=== PATIENT | female | born 1960 | race Caucasian/White ===

== ENCOUNTER → 2017-02-03 | Outpatient (REF) | payer BC ==
[~2017-02-03] MED LIST: AMOX; ATOR1TAB19; BENZ100C5; CARD180C4 PO; CITA20TA4; DIAZ5TAB PO; DYMI137S; FLUC150T; SUCR1TAB56; XARE20TA
== END ==
LOC: M LAB REF 10:03
PROVIDERS: ATTEND Physician Assistant
DX: J02.9 Acute pharyngitis, unspecified (principal)

== ENCOUNTER 2017-02-16 18:03 | Emergency (ER) | payer BC ==
[~2017-02-16] VITALS: Ht 162.6 cm; Wt 74.1 kg
[2017-02-16] MEDS ORDERED: CITA20TA4 (18:18)
[2017-02-16] MEDS ORDERED: DYMI137S (18:18)
[2017-02-16] MEDS ORDERED: SUCR1TAB56 (18:18)
[2017-02-16] MEDS ORDERED: ATOR1TAB19 (18:18)
[2017-02-16] MEDS ORDERED: BENZ100C5 (18:18)
[2017-02-16] MEDS ORDERED: FLUC150T (18:18)
[2017-02-16] MEDS ORDERED: AMOX (18:18)
[2017-02-16] MEDS ORDERED: XARE20TA (18:18)
[2017-02-16] MEDS ORDERED: DIAZ5TAB PO (18:18)
--- NOTE | 2017-02-16 18:50 | REP ---
Chest one-view HISTORY: Chest pain Comparison: 12/01/2016 The lungs are clear. The heart is normal in size. The pulmonary vasculature is normal in appearance. Impression: No acute disease. Signed by Andreas Lopez MD 02/16/2017 06:41 P
[2017-02-16 19:22] LABS: BASO # 0.1 10^3/uL (0.0-0.2); BASO % 0.9 % (0.0-1.0); EOS # 0.4 10^3/uL (0.0-0.50); EOS % 4.1 % (0.0-3.0); IMMATURE GRANULOCYTE % 0.2 % (0-0); LYMPH # 2.7 10^3/uL (1.5-4.5); MEAN CORPUSCULAR HGB CONC 33.7 g/dl (32.0-36.5); MEAN CORPUSCULAR VOLUME 86.2 fl (80.0-96.0); MONO # 0.4 10^3/uL (0.0-0.8); NEUTROPHILS # 5.8 10^3/uL (1.8-7.7); NEUTROPHILS % 61.8 % (36.0-66.0); PLATELET COUNT, AUTOMATED 345 10^3/uL (150-450); RED CELL DISTRIBUTION WIDTH 13.2 % (11.5-14.5); WHITE BLOOD COUNT 9.3 10^3/uL (4.0-10.0)
[2017-02-16] MEDS ORDERED: diltiaZEM **CD** 180 MG CAP PO ONE (20:15)
[2017-02-16 20:57] VITALS: BP 174/92
[2017-02-16 23:19] LABS: ALBUMIN 3.2 GM/DL (3.2-5.2); ALBUMIN/GLOBULIN RATIO 0.91 (1.00-1.93); ALKALINE PHOSPHATASE 64 U/L (45-117); ALT/SGPT 31 U/L (12-78); ANION GAP 6 MEQ/L (8-16); AST/SGOT 17 U/L (15-37); BILIRUBIN,DIRECT < 0.1 MG/DL (0.0-0.2); BILIRUBIN,TOTAL 0.2 MG/DL (0.2-1.0); BLOOD UREA NITROGEN 15 MG/DL (7-18); CALCIUM LEVEL 8.7 MG/DL (8.5-10.1); CARBON DIOXIDE LEVEL 28 MEQ/L (21-32); CHLORIDE LEVEL 108 MEQ/L (98-107); FREE T4 1.16 NG/DL (0.76-1.46); GLOMERULAR FILTRATION RATE > 60.0 (>51); GLUCOSE, FASTING 96 MG/DL (70-105); POTASSIUM SERUM 3.8 MEQ/L (3.5-5.1); SODIUM LEVEL 142 MEQ/L (136-145); TOTAL PROTEIN 6.7 GM/DL (6.4-8.2)
[2017-02-16] MEDS ORDERED: ISOVUE-370 76% 100ML VIAL (Q9967) As Ordered ONE (23:42)
--- NOTE | 2017-02-17 00:40 | REPUSA ---
CLINICAL HISTORY: Tachypnea, elevated d-dimers, exclude PE. TECHNIQUE: Multiple incremental axial, coronal and oblique images are obtained from the thoracic inle t to the upper abdomen. Intravenous contrast material was administered as per pulmonary embolism prot ocol. COMMENTS: Bilateral basilar atelectatic pulmonary changes. There is excellent opacification of pulmonary arterial system without evidence for pulmonary embolism . Aorta is of normal caliber without evidence for dissection or aneurysm. There is no evidence of pleural or parenchymal mass. There are no pleural effusions. There is no evid ence of hilar or mediastinal lymphadenopathy. The heart and great vessels are within normal limits. Images of the upper abdomen demonstrate no evidence of adrenal mass. The bony structures are free of lytic or blastic lesions. Multilevel degenerative changes are seen in volving the visualized thoracolumbar spine. Scattered calcifications are seen involving the aorta and major branches compatible with atherosclero sis. 1.1 cm well-defined hypodense lesion of the right hepatic lobe suggestive of a cyst. IMPRESSION: No evidence for pulmonary embolism. Bilateral basilar atelectatic pulmonary changes. Thank you for your kind referral of this patient.
[2017-02-17] MEDS ORDERED: CARD180C4 PO (03:38)
[2017-02-17 03:42] VITALS: BP 100/58
--- NOTE | 2017-02-17 08:30 | ECGEPIP ---
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
--- NOTE | 2017-02-17 08:33 | ECGEPIP ---
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
--- NOTE | 2017-02-17 08:34 | ECGEPIP ---
Stationary ECG Study [facility] - ED Test Date: 2017-02-17 Pat Name: PABLITO TAY Department: Room: - Gender: F Lgsw: : 1960 Requested By: KIMBERLY Manuel Order Number: [id number] Reading MD: Des Waite Measurements Intervals [place] Rate: 68 P: 51 DE: 172 QRS: 40 QRSD: 88 T: 33 QT: 406 QTc: 433 Interpretive Statements SINUS RHYTHM Electronically Signed On 02-17-2017 8:34:28 EDT by Des Waite
== END 2017-02-17 03:54 | disposition home or self-care (01) ==
LOC: M ED 18:03
DX: R07.9 Chest pain, unspecified (principal); I48.91 Unspecified atrial fibrillation; Z79.899 Other long term (current) drug therapy; Z88.1 Allergy status to other antibiotic agents; Z88.2 Allergy status to sulfonamides; Z98.890 Other specified postprocedural states
CPT/HCPCS: 71010; 71275; 80048; 80076; 82550; 82553; 83690; 84439; 84443; 85025; 85379; 93005; 93041; 94760; 96374; 99285; Q9967

== ENCOUNTER 2017-03-05 18:32 | Emergency (ER) | payer BC ==
[~2017-03-05] VITALS: Ht 162.6 cm; Wt 74.8 kg
--- NOTE | 2017-03-05 20:50 | REPUSA ---
Clinical history: Cough. Comparison: None. Findings: Frontal and lateral views of the chest were obtained. The mediastinum and cardiac silhouett e are within normal limits. The lungs are clear. No pleural effusion or pneumothorax is seen. The oss eous structures and soft tissues are unremarkable. Impression: No acute disease.
[2017-03-05 21:08] LABS: BASO % 0.2 % (0.0-1.0); EOS # 0.2 10^3/uL (0.0-0.50); EOS % 2.1 % (0.0-3.0); IMMATURE GRANULOCYTE % 0.1 % (0-0); LYMPH # 2.8 10^3/uL (1.5-4.5); LYMPH % 34.7 % (24.0-44.0); MEAN CORPUSCULAR HEMOGLOBIN 29.4 pg (27.0-33.0); MEAN CORPUSCULAR HGB CONC 33.6 g/dl (32.0-36.5); MEAN CORPUSCULAR VOLUME 87.3 fl (80.0-96.0); MONO # 0.5 10^3/uL (0.0-0.8); MONO % 6.2 % (0.0-5.0); NEUTROPHILS # 4.6 10^3/uL (1.8-7.7); NEUTROPHILS % 56.7 % (36.0-66.0); PLATELET COUNT, AUTOMATED 290 10^3/uL (150-450); RED CELL DISTRIBUTION WIDTH 13.8 % (11.5-14.5); WHITE BLOOD COUNT 8.1 10^3/uL (4.0-10.0)
[2017-03-05 21:34] LABS: ANION GAP 9 MEQ/L (8-16); BLOOD UREA NITROGEN 12 MG/DL (7-18); CALCIUM LEVEL 8.7 MG/DL (8.5-10.1); CARBON DIOXIDE LEVEL 27 MEQ/L (21-32); CHLORIDE LEVEL 106 MEQ/L (98-107); CREATININE FOR GFR 0.81 MG/DL (0.55-1.02); FREE T4 1.21 NG/DL (0.76-1.46); GLOMERULAR FILTRATION RATE > 60.0 (>51); GLUCOSE, FASTING 97 MG/DL (70-105); MAGNESIUM LEVEL 2.1 MG/DL (1.8-2.4); PHOSPHORUS LEVEL 3.4 MG/DL (2.5-4.9); POTASSIUM SERUM 3.8 MEQ/L (3.5-5.1); SODIUM LEVEL 142 MEQ/L (136-145)
[2017-03-06 01:38] VITALS: BP 120/66
--- NOTE | 2017-03-06 05:41 | ECGEPIP ---
Stationary ECG Study [facility] - ED Test Date: 2017-03-05 Pat Name: PABLITO TAY Department: Room: - Gender: F Manager Oracle: TINY : 1960 Requested By: Des Black Order Number: [id number] Reading MD: Des Waite Measurements Intervals [place] Rate: 74 P: 55 [place]: 154 QRS: 20 QRSD: 82 T: 24 QT: 375 QTc: 417 Interpretive Statements SINUS RHYTHM LOW QRS VOLTAGE IN PRECORDIAL LEADS SIMILAR TO 02/17/17 Electronically Signed On 03-06-2017 5:41:21 EDT by Des Waite
--- NOTE | 2017-03-06 05:47 | ECGEPIP ---
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
== END 2017-03-06 01:55 | disposition home or self-care (01) ==
LOC: M ED 18:32
DX: R00.2 Palpitations (principal); I48.91 Unspecified atrial fibrillation; E78.4 Other hyperlipidemia; Z87.891 Personal history of nicotine dependence

== ENCOUNTER → 2017-04-23 | Outpatient (CLI) | payer BC ==
--- NOTE | 2017-04-27 14:54 | SLEEPHOME ---
DATE OF STUDY: 04/23/2017 ORDERED BY: Luanne Hurst NP Diagnostic home sleep testing was performed due to concern for the obstructive sleep apnea syndrome in this patient with a history of excessive somnolence. Comorbidities of atrial fibrillation. For testing, a NOX-T3 respiratory monitoring device was used. Continuous record was made of pulse, oxygen saturation, airflow, chest and abdominal strain, and body position. 10 hours and 59 minutes of data were reviewed. There were 8 hours and 28 minutes marked as time in bed. During the interval marked time in bed, there were 123 respiratory events identified of 10 seconds in duration or greater for a respiratory event index of 14.5. The events were primarily obstructive with mixed and central apneas were also seen. The frequency of mixed and central apneas was greater than 50%. Baseline pulse rate 62 beats per minute. Pulse rate ranged 52-90 beats per minute. Baseline saturation 93%. Lowest oxygen saturation 84%. Testing was performed in both the supine and non supine positions. IMPRESSION: Abnormal home sleep testing with repetitive respiratory events and oxygen desaturation to 84% with a respiratory event index of 14.5 and frequent central apneas consistent with complex obstructive sleep apnea syndrome. RECOMMENDATION: Given the complexity of the patient's disease, referral for formal sleep evaluation and in laboratory pressure titration is indicated.
== END ==
LOC: M SLEEP HO 13:29
PROVIDERS: ATTEND Nurse Practitioner Adult Health
DX: G47.30 Sleep apnea, unspecified (principal); R40.0 Somnolence

== ENCOUNTER → 2017-06-01 | Outpatient (CLI) | payer BC | LOC: M SLEEP 19:42 | DX: G47.33 Obstructive sleep apnea (adult) (pediatric) (principal) | CPT/HCPCS: 95811 ==

== ENCOUNTER → 2017-06-21 | Outpatient (REF) | payer BC ==
[2017-06-21 15:18] LABS: BASO % 0.5 % (0.0-1.0); EOS # 0.1 10^3/uL (0.0-0.50); EOS % 2.1 % (0.0-3.0); HEMATOCRIT 39.2 % (36.0-47.0); HEMOGLOBIN 12.9 g/dl (12.0-16.0); IMMATURE GRANULOCYTE % 0.2 % (0-0); LYMPH # 2.1 10^3/uL (1.5-4.5); LYMPH % 36.8 % (24.0-44.0); MEAN CORPUSCULAR HEMOGLOBIN 28.4 pg (27.0-33.0); MEAN CORPUSCULAR HGB CONC 32.9 g/dl (32.0-36.5); MEAN CORPUSCULAR VOLUME 86.3 fl (80.0-96.0); MONO # 0.3 10^3/uL (0.0-0.8); MONO % 4.4 % (0.0-5.0); NEUTROPHILS # 3.2 10^3/uL (1.8-7.7); PLATELET COUNT, AUTOMATED 295 10^3/uL (150-450); RED BLOOD COUNT 4.54 10^6/uL (4.00-5.40); RETIC HEMOGLOBIN EQUIVALENT 34.7 pg (24-36); RETICULOCYTE # 48.6 10^9/L (17-77); RETICULOCYTE % 1.1 % (0.5-1.5); WHITE BLOOD COUNT 5.7 10^3/uL (4.0-10.0)
[2017-06-21 15:33] LABS: TOTAL 25(OH) VITAMIN D 22.7 NG/ML (30.0-100.0)
[2017-06-21 15:34] LABS: FOLATE 19.3 NG/ML; VITAMIN B12 LEVEL 427 PG/ML
[2017-06-21 16:22] LABS: ALBUMIN 3.9 GM/DL (3.2-5.2); ALKALINE PHOSPHATASE 61 U/L (45-117); ALT/SGPT 23 U/L (12-78); ANION GAP 6 MEQ/L (8-16); AST/SGOT 12 U/L (7-37); BILIRUBIN,TOTAL 0.4 MG/DL (0.2-1.0); BLOOD UREA NITROGEN 16 MG/DL (7-18); CALCIUM LEVEL 8.8 MG/DL (8.5-10.1); CARBON DIOXIDE LEVEL 28 MEQ/L (21-32); CHLORIDE LEVEL 105 MEQ/L (98-107); CHOLESTEROL LEVEL 229 MG/DL (<200); CHOLESTEROL RISK RATIO 3.948 (<5); CREATININE FOR GFR 0.79 MG/DL (0.55-1.30); FERRITIN 84 NG/ML (8-252); GLOMERULAR FILTRATION RATE > 60.0 (>51); GLUCOSE, FASTING 97 MG/DL (70-100); HDL CHOLESTEROL 58 MG/DL (>40); IRON (FE) 105 UG/DL (50-170); LDL CHOLESTEROL 150.2 MG/DL (<100); NON-HDL-C 171 MG/DL; PERCENT SATURATION 35.4 % (13.2-45.0); POTASSIUM SERUM 4.7 MEQ/L (3.5-5.1); SODIUM LEVEL 139 MEQ/L (136-145); TOTAL IRON BINDING CAPACITY 297 UG/DL (250-450); TOTAL PROTEIN 6.9 GM/DL (6.4-8.2); TRIGLYCERIDES LEVEL 104 MG/DL (<150)
[2017-06-21 16:34] LABS: ERYTHROCYTE SEDIMENTATION RATE 10 mm/hr (0-30)
[2017-06-23 14:15] LABS: ANTINUCLEAR ANTIBODIES DIRECT Negative (Negative)
== END ==
LOC: M LABDRWAD 13:48
DX: E55.9 Vitamin D deficiency, unspecified (principal); E78.5 Hyperlipidemia, unspecified; G43.109 Migraine with aura, not intractable, without status migrainosus; R07.9 Chest pain, unspecified; M43.6 Torticollis
CPT/HCPCS: 82746

== ENCOUNTER → 2018-02-04 | Outpatient (CLI) | payer BC ==
[2018-02-04 09:22] LABS: BASO % 0.7 % (0.0-1.0); EOS # 0.2 10^3/uL (0.0-0.50); EOS % 2.6 % (0.0-3.0); HEMATOCRIT 38.9 % (36.0-47.0); IMMATURE GRANULOCYTE % 0.2 % (0-3.0); LYMPH # 1.8 10^3/uL (1.5-4.5); LYMPH % 31.4 % (24.0-44.0); MEAN CORPUSCULAR HEMOGLOBIN 29.4 pg (27.0-33.0); MEAN CORPUSCULAR HGB CONC 33.4 g/dl (32.0-36.5); MONO # 0.4 10^3/uL (0.0-0.8); MONO % 6.5 % (0.0-5.0); NEUTROPHILS # 3.4 10^3/uL (1.8-7.7); NEUTROPHILS % 58.6 % (36.0-66.0); PLATELET COUNT, AUTOMATED 261 10^3/uL (150-450); RED BLOOD COUNT 4.42 10^6/uL (4.00-5.40); RED CELL DISTRIBUTION WIDTH 13.4 % (11.5-14.5); WHITE BLOOD COUNT 5.9 10^3/uL (4.0-10.0)
[2018-02-04 09:48] LABS: ANION GAP 9 MEQ/L (8-16); BLOOD UREA NITROGEN 16 MG/DL (7-18); CALCIUM LEVEL 8.8 MG/DL (8.5-10.1); CARBON DIOXIDE LEVEL 27 MEQ/L (21-32); CHLORIDE LEVEL 106 MEQ/L (98-107); CREATININE FOR GFR 0.75 MG/DL (0.55-1.30); GLOMERULAR FILTRATION RATE > 60.0 (>51); GLUCOSE, FASTING 92 MG/DL (70-100); POTASSIUM SERUM 4.2 MEQ/L (3.5-5.1); SODIUM LEVEL 142 MEQ/L (136-145)
== END ==
LOC: M LAB 08:38
DX: I48.0 Paroxysmal atrial fibrillation (principal)
CPT/HCPCS: 80048

== ENCOUNTER → 2018-02-04 | Outpatient (CLI) | payer BC ==
[2018-02-04 09:23] LABS: BASO % 0.7 % (0.0-1.0); EOS # 0.1 10^3/uL (0.0-0.50); EOS % 2.2 % (0.0-3.0); HEMATOCRIT 40.1 % (36.0-47.0); HEMOGLOBIN 13.2 g/dl (12.0-15.5); IMMATURE GRANULOCYTE % 0.3 % (0-3.0); LYMPH # 1.9 10^3/uL (1.5-4.5); LYMPH % 32.3 % (24.0-44.0); MEAN CORPUSCULAR HEMOGLOBIN 28.9 pg (27.0-33.0); MEAN CORPUSCULAR HGB CONC 32.9 g/dl (32.0-36.5); MEAN CORPUSCULAR VOLUME 87.7 fl (80.0-96.0); MONO # 0.4 10^3/uL (0.0-0.8); MONO % 5.9 % (0.0-5.0); NEUTROPHILS # 3.5 10^3/uL (1.8-7.7); NEUTROPHILS % 58.6 % (36.0-66.0); PLATELET COUNT, AUTOMATED 277 10^3/uL (150-450); RED BLOOD COUNT 4.57 10^6/uL (4.00-5.40); RED CELL DISTRIBUTION WIDTH 13.5 % (11.5-14.5)
[2018-02-04 10:01] LABS: ALBUMIN 3.8 GM/DL (3.2-5.2); ALBUMIN/GLOBULIN RATIO 1.15 (1.00-1.93); ALKALINE PHOSPHATASE 66 U/L (45-117); ALT/SGPT 28 U/L (12-78); ANION GAP 10 MEQ/L (8-16); AST/SGOT 17 U/L (7-37); BILIRUBIN,TOTAL 0.5 MG/DL (0.2-1.0); BLOOD UREA NITROGEN 16 MG/DL (7-18); CALCIUM LEVEL 9.1 MG/DL (8.5-10.1); CARBON DIOXIDE LEVEL 27 MEQ/L (21-32); CHLORIDE LEVEL 106 MEQ/L (98-107); CHOLESTEROL LEVEL 190 MG/DL (<200); CHOLESTEROL RISK RATIO 2.968 (<5); CREATININE FOR GFR 0.74 MG/DL (0.55-1.30); GLOMERULAR FILTRATION RATE > 60.0 (>51); GLUCOSE, FASTING 97 MG/DL (70-100); HDL CHOLESTEROL 64 MG/DL (>40); LDL CHOLESTEROL 106 MG/DL (<100); NON-HDL-C 126 MG/DL; POTASSIUM SERUM 4.3 MEQ/L (3.5-5.1); SODIUM LEVEL 143 MEQ/L (136-145); TOTAL PROTEIN 7.1 GM/DL (6.4-8.2); TRIGLYCERIDES LEVEL 100 MG/DL (<150)
[2018-02-04 10:17] LABS: TOTAL 25(OH) VITAMIN D 30.1 NG/ML (30.0-100.0)
== END ==
LOC: M LAB 08:43
DX: G43.109 Migraine with aura, not intractable, without status migrainosus (principal); I48.91 Unspecified atrial fibrillation; E55.9 Vitamin D deficiency, unspecified; E78.5 Hyperlipidemia, unspecified; F34.1 Dysthymic disorder
CPT/HCPCS: 84443

== ENCOUNTER 2018-12-30 08:16 | Emergency (ER) | payer BC ==
[~2018-12-30] VITALS: Ht 162.6 cm; Wt 76.2 kg
[~2018-12-30 08:16] MED LIST changes: +BENZ-18; -BENZ100C5; -CITA20TA4; +CITA20TA6
[2018-12-30] MEDS ORDERED: PANT40TA3 (08:23)
[2018-12-30] MEDS ORDERED: BACL10TA2 (08:23)
--- NOTE | 2018-12-30 09:13 | REP ---
Duplex extremity venous ultrasound: Right lower extremity History: Pain. Question DVT. Findings: The deep veins are anechoic and fully compressible from the groin to the popliteal fossa in the right lower extremity. Color flow imaging is homogeneous. Spectral Doppler interrogation demonstrates intact respiratory variation in flow and normal manual augmentation of flow. There is no evidence of deep vein thrombosis. Impression: Negative right lower extremity duplex venous ultrasound. No evidence of deep vein thrombosis. Electronically Signed by Sukhwinder Flores MD 12/30/2018 09:05 A
[2018-12-30 09:36] VITALS: BP 134/73
== END 2018-12-30 09:38 | disposition home or self-care (01) ==
LOC: M ED 08:16
DX: M79.604 Pain in right leg (principal); I48.91 Unspecified atrial fibrillation; E78.5 Hyperlipidemia, unspecified; J30.2 Other seasonal allergic rhinitis; Z79.899 Other long term (current) drug therapy; Z88.1 Allergy status to other antibiotic agents

== ENCOUNTER → 2021-05-11 | Outpatient (CLI) | payer BC ==
[~2021-05-11] MED LIST changes: +BACL10TA2; +PANT40TA29
== END ==
LOC: M LABSMTC 11:37
PROVIDERS: ATTEND Pediatrics
DX: Z20.822 Contact with and (suspected) exposure to COVID-19 (principal)
CPT/HCPCS: C9803; U0003

== ENCOUNTER 2021-11-18 12:34 | Emergency (ER) | payer BC ==
[~2021-11-18] VITALS: Ht 162.6 cm; Wt 76.4 kg
[~2021-11-18 12:34] MED LIST changes: -FLUC150T; +FLUC150T9
[2021-11-18 12:35] VITALS: BP 161/91
[2021-11-18] MEDS ORDERED: FERR32TA PO (12:46)
[2021-11-18] MEDS ORDERED: NS 500 ML IV ONE (14:40)
[2021-11-18 15:14] LABS: BASO % 0.6 % (0.0-1.0); EOS # 0.1 10^3/uL (0.0-0.5); EOS % 1.9 % (0.0-3.0); HEMATOCRIT 39.2 % (36.0-47.0); HEMOGLOBIN 12.9 g/dl (12.0-15.5); LYMPH % 30.9 % (24.0-44.0); MEAN CORPUSCULAR HEMOGLOBIN 29.5 pg (27.0-33.0); MEAN CORPUSCULAR HGB CONC 32.9 g/dl (32.0-36.5); MEAN CORPUSCULAR VOLUME 89.7 fl (80.0-96.0); MONO # 0.4 10^3/uL (0.0-0.8); MONO % 5.9 % (2.0-8.0); NEUTROPHILS # 3.9 10^3/uL (1.5-8.5); NEUTROPHILS % 60.5 % (36.0-66.0); PLATELET COUNT, AUTOMATED 289 10^3/uL (150-450); RED BLOOD COUNT 4.37 10^6/uL (4.00-5.40); WHITE BLOOD COUNT 6.4 10^3/uL (4.0-10.0)
[2021-11-18] MEDS ORDERED: KETOROLAC 30 MG/ML 1ML VIAL IV ONE (15:15)
[2021-11-18 15:47] LABS: ALBUMIN 3.8 GM/DL (3.2-5.2); ALT/SGPT 23 U/L (12-78); BILIRUBIN,DIRECT 0.1 MG/DL (0.0-0.2); BILIRUBIN,TOTAL 0.3 MG/DL (0.2-1.0); BLOOD UREA NITROGEN 10 MG/DL (7-18); CALCIUM LEVEL 9.3 MG/DL (8.8-10.2); CARBON DIOXIDE LEVEL 32 MEQ/L (21-32); CHLORIDE LEVEL 107 MEQ/L (98-107); CREATININE FOR GFR 0.75 MG/DL (0.55-1.30); GLOMERULAR FILTRATION RATE > 60.0 (>45); GLUCOSE, FASTING 89 MG/DL (70-100); LIPASE 163 U/L (73-393); POTASSIUM SERUM 4.8 MEQ/L (3.5-5.1); SODIUM LEVEL 140 MEQ/L (136-145); TOTAL PROTEIN 6.3 GM/DL (6.4-8.2)
[2021-11-18] MEDS ORDERED: diazePAM 10MG/2ML SYRINGE (J3360 PER 5MG) IV ONE (16:10)
== END 2021-11-18 16:47 | disposition home or self-care (01) ==
LOC: M ED 12:34
DX: R10.9 Unspecified abdominal pain (principal); R19.7 Diarrhea, unspecified; E78.5 Hyperlipidemia, unspecified; I48.91 Unspecified atrial fibrillation; Z88.1 Allergy status to other antibiotic agents; Z88.2 Allergy status to sulfonamides; Z88.8 Allergy status to other drugs, medicaments and biological substances
CPT/HCPCS: 74176; 80047; 80048; 80076; 81001; 83690; 85025; 96361; 96374; 96375; 99284; J1885; J3360

== ENCOUNTER → 2022-01-27 | Outpatient (REF) | payer BC ==
[~2022-01-27] MED LIST changes: +FERR32TA PO
[2022-01-27 21:58] LABS: APPEARANCE, URINE MANUAL HAZY (CLEAR); COLOR, URINE MANUAL PINK (YELLOW)
[2022-01-27 21:59] LABS: BILIRUBIN, URINE MANUAL NEGATIVE (NEGATIVE); BLOOD URINE MANUAL POSITIVE (NEGATIVE); GLUCOSE, URINE (UA) MANUAL NEGATIVE (NEGATIVE); KETONE, URINE MANUAL NEGATIVE (NEGATIVE); LEUKOCYTE ESTERASE, URINE MAN POSITIVE (NEGATIVE); NITRITE, URINE MANUAL NEGATIVE (NEGATIVE); PROTEIN, URINE MANUAL 3+ mg/dL (NEGATIVE); SPECIFIC GRAVITY,URINE MANUAL 1.005 (1.002-1.035); UROBILINOGEN, URINE MANUAL NORMAL (NORMAL)
[2022-01-27 22:04] LABS: WBC, URINE TNTC /hpf (0-3)
[2022-01-27 22:05] LABS: RBC, URINE 20-30 /hpf (0-3); SQUAMOUS EPITHELIAL CELL URINE SMALL AMOUNT /hpf (SMALL AMT)
[2022-01-27 22:06] LABS: BACTERIA, URINE SMALL AMOUNT
[2022-01-27 22:07] LABS: HYALINE CAST, URINE NONE SEEN /lpf (0-1)
== END ==
LOC: M LAB REF 21:06
PROVIDERS: ATTEND Physician Assistant Medical
DX: N39.0 Urinary tract infection, site not specified (principal)

== ENCOUNTER → 2022-06-27 | Outpatient (CLI) | payer BC | LOC: M PLAIMG 12:13 | PROVIDERS: ATTEND Physician Assistant Medical | DX: G24.3 Spasmodic torticollis (principal); M50.21 Other cervical disc displacement, high cervical region; M50.221 Other cervical disc displacement at C4-C5 level; M50.222 Other cervical disc displacement at C5-C6 level; M50.223 Other cervical disc displacement at C6-C7 level ==

== ENCOUNTER → 2023-03-28 | Outpatient (CLI) | payer BC | LOC: M RAD 09:27 | PROVIDERS: ATTEND Physician Assistant Medical | DX: R31.9 Hematuria, unspecified (principal) ==

== ENCOUNTER → 2023-03-28 | Outpatient (CLI) | payer BC | LOC: M RAD 09:33 | PROVIDERS: ATTEND Nurse Practitioner Family | DX: I65.23 Occlusion and stenosis of bilateral carotid arteries (principal) ==

== ENCOUNTER → 2023-05-03 | Outpatient (REF) | payer BC | LOC: M SMT 15:26 | PROVIDERS: ATTEND Nurse Practitioner Family | DX: R31.0 Gross hematuria (principal) ==

== ENCOUNTER → 2023-05-15 | Outpatient (REF) | payer BC ==
[2023-05-15 18:04] LABS: APPEARANCE, URINE MANUAL CLEAR (CLEAR); BILIRUBIN, URINE MANUAL NEGATIVE (NEGATIVE); COLOR, URINE MANUAL YELLOW (YELLOW); GLUCOSE, URINE (UA) MANUAL NEGATIVE (NEGATIVE); KETONE, URINE MANUAL NEGATIVE (NEGATIVE); PROTEIN, URINE MANUAL NEGATIVE (NEGATIVE); SPECIFIC GRAVITY,URINE MANUAL 1.015 (1.002-1.035); UROBILINOGEN, URINE MANUAL NORMAL (NORMAL)
[2023-05-15 18:05] LABS: BLOOD URINE MANUAL NEGATIVE (NEGATIVE); LEUKOCYTE ESTERASE, URINE MAN NEGATIVE (NEGATIVE); NITRITE, URINE MANUAL NEGATIVE (NEGATIVE)
== END ==
LOC: M SMT 16:54
PROVIDERS: ATTEND Urology
DX: R31.0 Gross hematuria (principal)

== ENCOUNTER → 2023-09-24 | Outpatient (CLI) | payer BC, MEDICARE | LOC: M PLAIMG 13:28 | PROVIDERS: ATTEND Physician Assistant Medical | DX: J32.8 Other chronic sinusitis (principal) ==

== ENCOUNTER → 2023-09-24 | Outpatient (CLI) | payer MEDICARE | LOC: M PLAIMG 13:27 | PROVIDERS: ATTEND Physician Assistant Medical | DX: R51.9 Headache, unspecified (principal) ==

== ENCOUNTER → 2023-12-25 | Outpatient (REF) | payer MEDICARE ==
[2023-12-25 18:12] LABS: APPEARANCE, URINE HAZY (CLEAR); BACTERIA, URINE AUTO NEGATIVE (NEGATIVE); BILIRUBIN, URINE AUTO NEGATIVE (NEGATIVE); BLOOD, URINE BLOOD NEGATIVE (NEGATIVE); COLOR, URINE YELLOW (YELLOW); GLUCOSE, URINE (UA) AUTO NEGATIVE (NEGATIVE); KETONE, URINE AUTO NEGATIVE (NEGATIVE); LEUKOCYTE ESTERASE, URINE AUTO TRACE (NEGATIVE); MUCUS, URINE SMALL (NEGATIVE); NITRITE, URINE AUTO NEGATIVE (NEGATIVE); PROTEIN, URINE AUTO NEGATIVE (NEGATIVE); RBC, URINE AUTO 1 /HPF (0-3); SPECIFIC GRAVITY URINE AUTO 1.021 (1.002-1.035); SQUAMOUS EPITHELIAL CELL UR AU 0 /HPF (0-6); UROBILINOGEN, URINE AUTO 0.2 mg/dL (0.0-2.0); WBC, URINE AUTO 1 /HPF (0-3)
== END ==
LOC: M SMT 17:06
PROVIDERS: ATTEND Urology
DX: R31.9 Hematuria, unspecified (principal)
CPT/HCPCS: 81001; 87086; 88108; G0463

== ENCOUNTER → 2024-02-01 | Outpatient (CLI) | payer MEDICARE | LOC: M RAD 13:20 | PROVIDERS: ATTEND Physician Assistant Medical | DX: Z12.2 Encounter for screening for malignant neoplasm of respiratory organs (principal); F17.210 Nicotine dependence, cigarettes, uncomplicated; R91.8 Other nonspecific abnormal finding of lung field; J47.9 Bronchiectasis, uncomplicated ==

== ENCOUNTER → 2024-02-04 | Outpatient (CLI) | payer MEDICARE | LOC: M RAD 14:47 | PROVIDERS: ATTEND Physician Assistant Medical | DX: I65.23 Occlusion and stenosis of bilateral carotid arteries (principal) ==

== ENCOUNTER → 2024-02-08 | Outpatient (CLI) | payer MEDICARE | LOC: M SLEEP 07:43 | PROVIDERS: ATTEND Physician Assistant Medical | DX: R51.9 Headache, unspecified (principal) ==

== ENCOUNTER → 2024-02-14 | Outpatient (CLI) | payer MEDICARE | LOC: M PLARAD 13:37 | PROVIDERS: ATTEND Physician Assistant Medical | DX: R51.9 Headache, unspecified (principal) ==

== ENCOUNTER → 2024-04-04 | Outpatient (CLI) | payer MEDICARE | LOC: M WHC 06:51 | PROVIDERS: ATTEND Physician Assistant Medical | DX: K76.89 Other specified diseases of liver (principal) ==

== ENCOUNTER → 2024-11-26 | Outpatient (CLI) | payer MEDICARE | LOC: M RAD 08:54 | PROVIDERS: ATTEND Physician Assistant Medical | DX: R10.10 Upper abdominal pain, unspecified (principal) ==

== ENCOUNTER → 2024-12-01 | Outpatient (CLI) | payer MEDICARE | LOC: M RAD 14:23 | PROVIDERS: ATTEND Physician Assistant Medical | DX: H53.30 Unspecified disorder of binocular vision (principal); R51.9 Headache, unspecified; R10.10 Upper abdominal pain, unspecified; J34.2 Deviated nasal septum; J32.2 Chronic ethmoidal sinusitis; J34.89 Other specified disorders of nose and nasal sinuses; R90.82 White matter disease, unspecified; R29.818 Other symptoms and signs involving the nervous system ==

== ENCOUNTER → 2025-01-26 | Outpatient (REF) | payer MEDICARE ==
[2025-01-26 13:51] LABS: APPEARANCE, URINE HAZY (CLEAR); BACTERIA, URINE AUTO NEGATIVE (NEGATIVE); BILIRUBIN, URINE AUTO NEGATIVE (NEGATIVE); BLOOD, URINE BLOOD NEGATIVE (NEGATIVE); GLUCOSE, URINE (UA) AUTO NEGATIVE (NEGATIVE); KETONE, URINE AUTO NEGATIVE (NEGATIVE); LEUKOCYTE ESTERASE, URINE AUTO NEGATIVE (NEGATIVE); NITRITE, URINE AUTO NEGATIVE (NEGATIVE); PROTEIN, URINE AUTO NEGATIVE (NEGATIVE); RBC, URINE AUTO 0 /HPF (0-3); SPECIFIC GRAVITY URINE AUTO 1.020 (1.002-1.035); SQUAMOUS EPITHELIAL CELL UR AU 0 /HPF (0-6); UROBILINOGEN, URINE AUTO 0.2 mg/dL (0.0-2.0); WBC, URINE AUTO 0 /HPF (0-3)
== END ==
LOC: M SMT 12:35
PROVIDERS: ATTEND Urology
DX: Z87.440 Personal history of urinary (tract) infections (principal)

== ENCOUNTER → 2025-02-20 | Outpatient (CLI) | payer MEDICARE | LOC: M RAD 08:19 | PROVIDERS: ATTEND Nurse Practitioner Adult Health | DX: Z12.2 Encounter for screening for malignant neoplasm of respiratory organs (principal); Z87.891 Personal history of nicotine dependence; I25.10 Atherosclerotic heart disease of native coronary artery without angina pectoris; J98.11 Atelectasis ==

== ENCOUNTER 2025-03-16 09:00 | Day surgery (SDC) | payer MEDICARE ==
[~2025-03-16] VITALS: Ht 162.6 cm; Wt 73.8 kg
[~2025-03-16 09:00] MED LIST changes: +ACETAMINOPHEN 1000MG/100ML IV BAG As Ordered ONE; -ATOR1TAB19; +ATOR1TAB19 PO; +AZEL1SPR3 INH; +AZO1CAP PO; +DEXT1TAB19 PO; +FAMO1TAB11 PO; +FLUTISP INH; +GNP250TA9 PO; +KETOROLAC 30 MG/ML 1 ML VIAL As Ordered ONE; +KRIL1000 PO; +LIDOCAINE 2% 100 MG/5 ML SDV (FOR ANES.) As Ordered ONE; +MIDAZOLAM INJ 2 MG/2 ML VIAL As Ordered ONE; +ONDANSETRON 4MG/2ML VIAL As Ordered ONE; +VITA1TAB26 PO; +VITA1TAB82 PO; +ZYRTTAB8 PO; +dexAMETHasone 4 MG/ML 1 ML VIAL As Ordered ONE; +dexmedeTOMIDine (4 MCG/ML) 200 MCG/50 ML BTL As Ordered ONE
[2025-03-16] MEDS ORDERED: LR 1,000 ML IV SCH ×2 (09:55→11:40)
[2025-03-16] MEDS: ceFAZolin SOD 2 GM IV ONCE IV ONE (11:07)
[2025-03-16] MEDS ORDERED: ONDANSETRON 4MG/2ML VIAL IV PRN (11:40)
[2025-03-16] MEDS ORDERED: MEPERIDINE 25 MG/ML 1 ML VIAL IV PRN (11:40)
[2025-03-16 12:20] VITALS: BP 136/70; TEMP 97; O2SAT 98
== END 2025-03-16 12:48 | disposition home or self-care (01) ==
LOC: M SDC 09:00
PROVIDERS: ATTEND Urology
DX: N39.3 Stress incontinence (female) (male) (principal); E78.00 Pure hypercholesterolemia, unspecified; K21.9 Gastro-esophageal reflux disease without esophagitis; K44.9 Diaphragmatic hernia without obstruction or gangrene; G43.909 Migraine, unspecified, not intractable, without status migrainosus; Z79.899 Other long term (current) drug therapy; Z90.710 Acquired absence of both cervix and uterus; F41.9 Anxiety disorder, unspecified; F32.A Depression, unspecified; Z88.2 Allergy status to sulfonamides; Z88.8 Allergy status to other drugs, medicaments and biological substances; Z87.898 Personal history of other specified conditions
CPT/HCPCS: 51715; A4215; J0131; J0688; J1100; J1885; J2250; J2405; J2765; J3010; L8606